=== PATIENT | female | born 1975 | race Caucasian/White ===

== ENCOUNTER 2023-06-21 21:22 | Emergency (ER) | payer BC ==
[2023-06-21] MEDS: Aspirin 81 MG Tab.Chew PO ONE (21:38)
[2023-06-21] MEDS: Sodium Chloride 0.9% 10 ML Syringe FLUSH PRN (21:53)
[2023-06-21 21:55] LABS: BASOPHILS PERCENT AUTO 0.3 % (0.0-1.0); HEMATOCRIT 25.9 % (37.0-47.0); HEMOGLOBIN 8.3 g/dL (12.0-16.0); MEAN CORPUSCULAR VOLUME 96.6 fL (80-100); MONOCYTES PERCENT AUTO 7.3 % (2-8); NEUTROPHILS PERCENT AUTO 57.4 % (42.2-75.2); PLATELET COUNT,PLT 203 10^3/uL (150-450); RED BLOOD CELL COUNT 2.68 10^6/uL (4.2-5.4); WHITE BLOOD CELL COUNT,WBC 8.9 10^3/uL (5.0-10.0)
[2023-06-21 21:59] VITALS: BP 110/78; PULSE 100
[2023-06-21] MEDS: Ondansetron 4 MG/2 ML SDV IVPUSH ONE (22:04)
[2023-06-21 22:16] LABS: A/G RATIO 0.9; ALANINE AMINOTRANSFERASE,ALT 36 U/L (14-59); ALBUMIN 3.5 g/dL (3.4-5.0); ALKALINE PHOSPHATASE 104 U/L (46-116); ANION GAP 16.8 mEq/L (7-13); ASPARTATE AMNIOTRANSFERASE,AST 18 U/L (15-37); BILIRUBIN TOTAL 0.4 mg/dL (0.2-1.0); BLOOD UREA NITROGEN,BUN 13 mg/dL (7-18); BUN/CREATININE RATIO 15.1 (No establ ref range); CALCIUM 8.7 mg/dL (8.5-10.1); CARBON DIOXIDE,CO2 25 mmol/L (21-32); CHLORIDE,CL 101 mmol/L (98-107); CREATININE 0.86 mg/dL (0.55-1.02); EST CRCL DRUG DOSING (CG) 68.33 mL/min; GLUCOSE RANDOM 120 mg/dL (70-99); POTASSIUM,K 3.8 mmol/L (3.5-5.1); PROTEIN TOTAL,TP 7.5 g/dL (6.4-8.2); SODIUM,NA 139 mmol/L (136-145)
[2023-06-21 22:18] LABS: ESTIMATED GFR 83 mL/min (>=60)
[2023-06-21] MEDS: Iopamidol 755 Mg/ML 100 ML Bottle IVPUSH ONE (23:08)
== END 2023-06-22 00:33 | disposition home or self-care (01) ==
LOC: DL.ED 21:22
DX: R91.1 Solitary pulmonary nodule (principal); D64.9 Anemia, unspecified; R06.09 Other forms of dyspnea; I10 Essential (primary) hypertension; Z79.899 Other long term (current) drug therapy
CPT/HCPCS: 36415; 71045; 71275; 80053; 82272; 83735; 84484; 85025; 85379; 93005; 96374; 99285; A9270; J2405; Q9967; J3490

== ENCOUNTER → 2023-08-06 | Day surgery (SDC) | payer BC ==
[~2023-08-06] MED LIST: Midazolam 1 MG/ML 2 ML SDV IV ONE; Midazolam 1 MG/ML 2 ML SDV ONE; fentaNYL 100 MCG/2 ML SDV IV ONE; fentaNYL 100 MCG/2 ML SDV ONE
[2023-08-06] MEDS: Dextrose 5%-0.45% NaCl 1,000 ML IV SCH (07:32)
[2023-08-06] MEDS: fentaNYL 100 MCG/2 ML SDV IV ONE ×2 (08:13→08:14)
[2023-08-06] MEDS: Midazolam 1 MG/ML 2 ML SDV IV ONE ×2 (08:14→08:15)
[2023-08-06 09:32] VITALS: BP 103/73; PULSE 56
== END ==
LOC: DL.ENDO 06:52
PROVIDERS: ATTEND Internal Medicine Gastroenterology
DX: K31.89 Other diseases of stomach and duodenum (principal); I78.1 Nevus, non-neoplastic; F32.A Depression, unspecified; K21.9 Gastro-esophageal reflux disease without esophagitis; I10 Essential (primary) hypertension; E66.09 Other obesity due to excess calories; F39 Unspecified mood [affective] disorder; Z68.33 Body mass index [BMI] 33.0-33.9, adult; Z90.49 Acquired absence of other specified parts of digestive tract; Z90.710 Acquired absence of both cervix and uterus
CPT/HCPCS: 43239; 87077; J2250; J3010; J7042